=== PATIENT | male | born 1960 | race Two or more races ===

== ENCOUNTER 2024-10-10 07:00 | Outpatient (CLI) | payer OTHER ==
[~2024-10-10] VITALS: Ht 162.6 cm; Wt 90.7 kg
[2024-10-10] MEDS ORDERED: SIMVASTATIN5 MG PO (13:37)
[2024-10-10] MEDS ORDERED: ZESTRIL2.5 MG PO (13:38)
[2024-10-10 13:41] VITALS: BP 170/79
== END 2024-10-10 07:15 | disposition home or self-care (01) ==
LOC: EKG 07:00 → SURG 10-16 10:00 → EDSTATUS 11-29 10:45 → SURG 11-29 10:45
PROVIDERS: ATTEND Surgery
DX: C18.7 Malignant neoplasm of sigmoid colon (principal); R59.0 Localized enlarged lymph nodes; K55.1 Chronic vascular disorders of intestine; K92.1 Melena

== ENCOUNTER 2024-12-27 10:45 | Inpatient (IN) | payer OTHER ==
[~2024-12-27] VITALS: Ht 157.5 cm; Wt 83.9 kg
[~2024-12-27 10:45] MED LIST: SIMVASTATIN5 MG PO; ZESTRIL2.5 MG PO
[2024-12-27 11:01] VITALS: BP 171/94
[2025-01-01] MEDS ORDERED: BUPIVACAINE HCL/MPF 0.5% 30ML VIAL ONE (07:05)
[2025-01-01] MEDS ORDERED: CEFTRIAXONE SODIUM 2,000 MG VIAL ONE (07:06)
[2025-01-01] MEDS ORDERED: LIDOCAINE HCL 1%/EPINEPHRINE 20ML VIAL IJ ONE (07:06)
[2025-01-01] MEDS ORDERED: METRONIDAZOLE/SODIUM CHLORIDE 500 MG/100 ML PIGGYBACK IV ONE (07:06)
[2025-01-01] MEDS ORDERED: ISOSORBIDE MONO30 M2 (07:44)
[2025-01-01] MEDS ORDERED: LISINOPRIL10 MG (07:44)
[2025-01-01] MEDS ORDERED: ATORVASTATIN CA10 MG (07:44)
[2025-01-01] MEDS ORDERED: CLOPIDOGREL BIS75 MG (07:45)
[2025-01-01] MEDS ORDERED: ST. JOSEPH ASPI81 M2 (07:45)
[2025-01-01] MEDS ORDERED: JARDIANCE10 MG (07:45)
[2025-01-01] MEDS ORDERED: SUGAMMADEX SODIUM 200 MG/2 ML VIAL IV ONE (10:07)
[2025-01-01] MEDS ORDERED: DEXTROSE 50 % IN WATER 0.5 G/ML VIAL IV PRN (10:15)
[2025-01-01] MEDS ORDERED: ONDANSETRON HCL 2 MG/ML VIAL IV PRN (10:15)
[2025-01-01] MEDS ORDERED: MORPHINE SULFATE 4 MG/ML CARTRIDGE IV PRN (10:15)
[2025-01-01] MEDS ORDERED: RINGERS SOLUTION,LACTATED 1,000 ML IV SCH (10:15)
[2025-01-01] MEDS ORDERED: OxyCODONE HCL 5 MG TABLET (ROXICODONE) PO PRN (10:15)
[2025-01-01] MEDS ORDERED: MORPHINE SULFATE 4 MG/ML VIAL IV ONE ×3 (11:30→12:55)
[2025-01-01 12:13] LABS: BASO % 0.3 % (0.1-1.2); EOS # 0.03 (0.04-0.54); EOS % 0.3 % (0.7-7.0); LYMPH # 0.94 (1.18-3.74); LYMPH % 9.8 % (19.3-53.1); MEAN PLATELET VOLUME 9.50 fl (9.4-12.4); MONO # 0.59 (0.24-0.82); MONO % 6.1 % (4.7-12.5); NEUT # 8.02 (1.56-6.13); NEUT % 83.2 % (34.0-71.1); RED CELL DISTRIBUTION WIDTH 14.3 % (11.6-14.4)
[2025-01-01] MEDS ORDERED: ENALAPRILAT DIHYDRATE 1.25 MG/ML VIAL IV ONE ×3 (12:34→13:10)
[2025-01-01 12:54] LABS: BUN CREA RATIO 8.0 (7.0-25.0); CREATININE SERUM 1.03 mg/dL (0.70-1.30); GFR 72.25; GLUCOSE FASTING 161.0 mg/dL (65-100); OSMOLALITY SERUM 285.0 MOSM/KG (275-295)
[2025-01-01] MEDS ORDERED: hydrALAZINE HCL 20 MG VIAL IV ONE (13:00)
[2025-01-01] MEDS ORDERED: ACETAMINOPHEN 500 MG GEL..CAP PO SCH (14:00)
[2025-01-01] MEDS ORDERED: hydrALAZINE HCL 20 MG VIAL ONE (14:48)
[2025-01-01] MEDS ORDERED: hydrALAZINE HCL 20 MG VIAL IV PRN (16:30)
[2025-01-01] MEDS ORDERED: POLYETHYLENE GLYCOL 3350 17 GM BLIST.PACK PO SCH (17:00)
[2025-01-01] MEDS ORDERED: GABAPENTIN 300 MG CAPSULE PO SCH (17:00)
[2025-01-01] MEDS ORDERED: METRONIDAZOLE/SODIUM CHLORIDE 500 MG/100 ML PIGGYBACK IV SCH (17:00)
[2025-01-01 17:12] VITALS: BP 132/71; O2SAT 95
[2025-01-01] MEDS ORDERED: FAMOTIDINE/PF 20 MG/2 ML VIAL IV PUSH SCH (21:00)
[2025-01-01] MEDS ORDERED: CIPROFLOXACIN IN 5 % DEXTROSE 400 MG/200 ML PIGGYBAG IV SCH (21:00)
[2025-01-02] VITALS: BP 129/76; O2SAT 94
[2025-01-02 06:49] LABS: BASO % 0.3 % (0.1-1.2); EOS # 0.00 (0.04-0.54); EOS % 0.0 % (0.7-7.0); LYMPH # 0.72 (1.18-3.74); LYMPH % 7.1 % (19.3-53.1); MEAN PLATELET VOLUME 10.10 fl (9.4-12.4); MONO # 0.94 (0.24-0.82); MONO % 9.3 % (4.7-12.5); NEUT # 8.37 (1.56-6.13); NEUT % 83.0 % (34.0-71.1); RED CELL DISTRIBUTION WIDTH 14.5 % (11.6-14.4)
[2025-01-02 07:33] LABS: BUN CREA RATIO 12.0 (7.0-25.0); CREATININE SERUM 0.97 mg/dL (0.70-1.30); GFR 77.43; GLUCOSE FASTING 123.0 mg/dL (65-100); OSMOLALITY SERUM 279.0 MOSM/KG (275-295)
[2025-01-02] MEDS ORDERED: MAGNESIUM SULFATE IN WATER 4 GM/100 ML PIGGYBACK IV NR (09:00)
[2025-01-02] MEDS ORDERED: ENOXAPARIN SODIUM 40 MG/0.4 ML SYRINGE SUBCUTANEO SCH ×2 (09:00→17:00)
[2025-01-02 09:04] VITALS: BP 126/84; O2SAT 94
[2025-01-02 12:14] VITALS: O2SAT 95
[2025-01-02] MEDS ORDERED: SIMVASTATIN 10 MG TABLET PO SCH (17:00)
[2025-01-02 17:13] VITALS: BP 137/81; O2SAT 95
[2025-01-02 20:39] VITALS: O2SAT 98
[2025-01-03 00:53] VITALS: BP 143/74; O2SAT 96
[2025-01-03 00:55] VITALS: O2SAT 96
[2025-01-03 05:53] VITALS: O2SAT 95
[2025-01-03] MEDS ORDERED: ENOXAPARIN SODIUM 40 MG/0.4 ML SYRINGE SUBCUTANEO SCH (09:00)
[2025-01-03] MEDS ORDERED: TAMSULOSIN HCL 0.4 MG CAP PO SCH (09:00)
[2025-01-03 16:00] VITALS: BP 144/75; O2SAT 95
[2025-01-04] VITALS (8 sets, daily range): BP systolic 132–156; BP diastolic 83–86; O2SAT 88–98
[2025-01-04 08:20] LABS: BASO % 0.2 % (0.1-1.2); EOS # 0.12 (0.04-0.54); EOS % 0.8 % (0.7-7.0); LYMPH # 0.91 (1.18-3.74); LYMPH % 6.3 % (19.3-53.1); MEAN PLATELET VOLUME 10.40 fl (9.4-12.4); MONO # 0.95 (0.24-0.82); MONO % 6.6 % (4.7-12.5); NEUT # 12.34 (1.56-6.13); NEUT % 85.5 % (34.0-71.1); RED CELL DISTRIBUTION WIDTH 14.4 % (11.6-14.4)
[2025-01-04 08:47] LABS: BUN CREA RATIO 22.0 (7.0-25.0); CREATININE SERUM 0.77 mg/dL (0.70-1.30); GFR 101.08; GLUCOSE FASTING 105.0 mg/dL (65-100); OSMOLALITY SERUM 283.0 MOSM/KG (275-295)
[2025-01-04] MEDS ORDERED: FAMOTIDINE/PF 20 MG/2 ML VIAL IV PUSH SCH (09:00)
[2025-01-04] MEDS ORDERED: PIPERACILLIN/TAZOBACTAM SODIUM 3.375 GM in DEXTROSE 5 % IN WATER 100 ML IV SCH (09:09)
[2025-01-05 00:31] VITALS: O2SAT 95
[2025-01-05 01:02] VITALS: BP 146/80; O2SAT 95
[2025-01-05 07:26] LABS: BASO % 0.3 % (0.1-1.2); EOS # 0.46 (0.04-0.54); EOS % 3.7 % (0.7-7.0); LYMPH # 1.06 (1.18-3.74); LYMPH % 8.5 % (19.3-53.1); MEAN PLATELET VOLUME 10.10 fl (9.4-12.4); MONO # 0.93 (0.24-0.82); MONO % 7.5 % (4.7-12.5); NEUT # 9.94 (1.56-6.13); NEUT % 79.6 % (34.0-71.1); RED CELL DISTRIBUTION WIDTH 14.4 % (11.6-14.4)
[2025-01-05 07:55] LABS: ALT/SGPT 22.0 U/L (12-78); AST/SGOT 20.0 U/L (15-37); BILIRUBIN TOTAL 0.66 mg/dL (0.3-1.2); BUN CREA RATIO 17.0 (7.0-25.0); CREATININE SERUM 0.86 mg/dL (0.70-1.30); GFR 88.97; GLOBULINA 3.5 G/DL (2.4-3.5); GLUCOSE FASTING 107.0 mg/dL (65-100); OSMOLALITY SERUM 283.0 MOSM/KG (275-295)
[2025-01-05 08:00] VITALS: BP 139/87; O2SAT 96
[2025-01-05 08:27] VITALS: O2SAT 90
[2025-01-05 17:00] VITALS: BP 146/88; O2SAT 97
[2025-01-06 01:12] VITALS: BP 160/80; O2SAT 95
[2025-01-06 02:31] VITALS: O2SAT 90
[2025-01-06 06:18] VITALS: O2SAT 98
[2025-01-06 08:00] VITALS: BP 155/80; O2SAT 95
[2025-01-06 08:18] VITALS: O2SAT 93
[2025-01-06] MEDS ORDERED: NEURONTIN300 MG PO (14:31)
[2025-01-06] MEDS ORDERED: TYLENOL ARTHRI650 MG PO (14:31)
== END 2025-01-06 17:01 | disposition home or self-care (01) | DRG 330 ==
LOC: O/R 01-01 05:55 → SURH 01-01 05:55
PROVIDERS: Internal Medicine; ADMIT Surgery; ATTEND Surgery
PROC: 0DBP4ZZ Excision of Rectum, Percutaneous Endoscopic Approach (ICD-10-PCS; 2025-01-01)
PROC: 0DTN4ZZ Resection of Sigmoid Colon, Percutaneous Endoscopic Approach (ICD-10-PCS; 2025-01-01)
PROC: 07BB4ZZ Excision of Mesenteric Lymphatic, Percutaneous Endoscopic Approach (ICD-10-PCS; 2025-01-01)
PROC: 0D1E4Z4 Bypass Large Intestine to Cutaneous, Percutaneous Endoscopic Approach (ICD-10-PCS; principal; 2025-01-01 10:45)
PROC: 4A12X4Z Monitoring of Cardiac Electrical Activity, External Approach (ICD-10-PCS; 2025-01-02)
DX: C18.7 Malignant neoplasm of sigmoid colon (principal); K55.1 Chronic vascular disorders of intestine; K92.1 Melena; R59.0 Localized enlarged lymph nodes; I10 Essential (primary) hypertension